=== PATIENT | male | born 1950 | race Two or more races ===

== ENCOUNTER 2018-04-25 08:43 | Emergency (ER) | payer OTHER ==
--- NOTE | 2018-04-25 10:10 | C.PDOC ---
History Of Present Illness 68 y/o male presents to the ED complaining of a lump to abdominal wall for several months. Patient states the lump initially was not painful however over last few days, it has become increasingly painful and red. Denies any associated fever or chills. Time Seen by Provider: 04/25/18 09:46 Chief Complaint (Nursing): Abnormal Skin Integrity History Per: Patient History/Exam Limitations: no limitations Onset/Duration Of Symptoms: Days Current Symptoms Are (Timing): Still Present Past Medical History Reviewed: Historical Data, Nursing Documentation, Vital Signs Vital Signs: Last Vital Signs Temp 98.2 F 04/25/18 08:55 Pulse 91 H 04/25/18 08:55 Resp 20 04/25/18 08:55 BP 138/89 04/25/18 08:55 Pulse Ox 95 04/25/18 08:55 - Medical History PMH: HTN Family History: States: No Known Family Hx - Social History Hx Alcohol Use: Yes Hx Substance Use: No - Immunization History Hx Tetanus Toxoid Vaccination: No Hx Influenza Vaccination: No Hx Pneumococcal Vaccination: No Review Of Systems Except As Marked, All Systems Reviewed And Found Negative. Constitutional: Negative for: Fever, Chills, Sweats Gastrointestinal: Negative for: Nausea, Vomiting Skin: Positive for: Other (mass to abdomen). Negative for: Rash Physical Exam - Physical Exam Appears: Well, Non-toxic, No Acute Distress Skin: Warm, Dry, Other (4 cm abscess to the abdominal wall, with fluctuance, erythema and tenderness) Head: Atraumatic, Normacephalic Eye(s): bilateral: Normal Inspection, PERRL, EOMI Pulses: Left Radial: Normal, Right Radial: Normal Neurological/Psych: Oriented x3, Normal Speech ED Course And Treatment O2 Sat by Pulse Oximetry: 95 (RA) Pulse Ox Interpretation: Normal Progress Note: I&D performed without difficulty, + purulent and sebaceous discharge expressed. Cultures sent. Wound packed with 0.5 inch packing material. Patient advised to return in 2 days for packing removal and wound check. - Incision & Drainage Of Abscess Anesthesia: Lidocaine 1%, With Epi Prep Used: Sterile Water, Betadine Procedure: Incised W/Scalpel Blade#: (11), Drained Pus, Irrigated Cavity W/Saline, Probed To Break Up Loculations, Packed W/Gauze, Cultures Obtained And Sent To Lab Disposition - Disposition Referrals: [facility] [Outside] Disposition: HOME/ ROUTINE Disposition Time: 12:09 Condition: GOOD Additional Instructions: Follow up in clinic within 1-2 days. Return to ED in 2 days for wound check and dressing change. Return to ED immediately if feel worse. Prescriptions: Clindamycin [Cleocin] 300 mg PO Q6 #28 cap Instructions: Abscess Incision and Drainage Forms: [employer] (Lao) Print Language: INDONESIAN - Clinical Impression Clinical Impression: Infected sebaceous cyst of skin - PA / [employer] / Resident Statement MD/DO has reviewed & agrees with the documentation as recorded. - Scribe Statement The provider has reviewed the documentation as recorded by the Yossi Castano All medical record entries made by the Belindaiblior were at my direction and personally dictated by me. I have reviewed the chart and agree that the record accurately reflects my personal performance of the history, physical exam, medical decision making, and the department course for this patient. I have also personally directed, reviewed, and agree with the discharge instructions and disposition.
[2018-04-25] MEDS ORDERED: Lidocaine 1% w Epi 1:100,000 Inj INJ STA (10:59)
[2018-04-25] MEDS ORDERED: Oxycodone/Acetaminophen 5/325 mg Tab PO STA (12:08)
[2018-04-25] MEDS ORDERED: Oxycodone/Acetaminophen 5/325 mg Tab ONE (12:39)
[2018-04-25 12:45] VITALS: BP 129/78; PULSE 67; RESP 16; TEMP 98.3
[2018-04-25 18:18] VITALS: O2SAT 95
== END 2018-04-25 12:44 | disposition home or self-care (01) ==
LOC: C.ER 08:43
DX: L72.3 Sebaceous cyst (principal)